=== PATIENT | male | born 1960 | race Caucasian/White ===

== ENCOUNTER → 2017-03-21 | Outpatient (CLI) | payer OTHER ==
[~2017-03-21] MED LIST: ATOR10TA82 PO; TESTOSTERONE IM
[2017-03-21 10:47] LABS: BASO % 0.3 %; BASO ABS # 0.02 K/uL (0-0.2); COMPLETE YES; EOS % 2.3 %; HEMATOCRIT 46.8 % (42-52); IG% 0.1 %; LYMPH % 35.3 %; LYMPH ABS # 2.57 K/uL (1.2-3.4); MEAN CELL VOLUME 91.2 fL (80-100); MEAN PLATELET VOLUME 9.7 fL (7.4-10.4); MONO % 8.8 %; NEUT % 53.2 %; PLATELET COUNT 247 K/uL (130-400); RED BLOOD COUNT 5.13 M/uL (4.7-6.1); WHITE BLOOD COUNT 7.29 K/uL (4.8-10.8)
[2017-03-21 11:16] LABS: ALT/SGPT 59 U/L (12-78); AST/SGOT 28 U/L (15-37); BLOOD UREA NITROGEN 10 mg/dl (7-18); BUN/CREATININE RATIO 10.6 (10-20); CALCIUM 8.7 mg/dl (8.5-10.1); CARBON DIOXIDE 27 mmol/L (21-32); CHLORIDE 106 mmol/L (98-107); CREATININE 0.98 mg/dl (0.60-1.40); GLUCOSE 88 mg/dl (70-99); POTASSIUM 4.2 mmol/L (3.5-5.1); SODIUM 140 mmol/L (136-145)
[2017-03-21 11:28] LABS: ALB/GLOB RATIO 1.2 (0.9-2); ALKALINE PHOSPHATASE 54 U/L (45-117); CHOLESTEROL 151 mg/dl (0-200); CHOLESTEROL/HDL RATIO 3.5; HDL CHOLESTEROL 43 mg/dl; LDL CHOLESTEROL CALCULATED 82 mg/dl; PROSTATE SPECIFIC ANTIGEN 0.823 ng/ml (0.000-4.000); THYROID STIMULATING HORMONE 0.909 uIu/ml (0.300-4.500); TRIGLYCERIDES 129 mg/dl (0-150); URIC ACID 6.6 mg/dl (2.6-7.2); VERY LOW DENSITY LIPOPROT CALC 26 mg/dl
[2017-03-21 11:32] LABS: ESTIMATED AVERAGE GLUCOSE 114 mg/dl; HA1C FLAG Normal (Normal)
[2017-03-21 12:26] LABS: PROLACTIN 5.59 ng/mL; TESTOSTERONE,TOTAL 1057.9 ng/dl
[2017-03-24 10:01] LABS: C-REACTIVE PROT HIGHSEN 2.6 MG/L
== END | disposition home or self-care (01) ==
LOC: C.LAB 09:28
PROVIDERS: ATTEND Family Medicine
DX: R73.09 Other abnormal glucose (principal); E29.1 Testicular hypofunction

== ENCOUNTER → 2017-10-02 | Outpatient (CLI) | payer OTHER ==
[2017-10-02 12:10] LABS: BASO % 0.4 %; BASO ABS # 0.03 K/uL (0-0.2); COMPLETE YES; EOS % 2.9 %; HEMATOCRIT 49.1 % (42-52); IG% 0.1 %; LYMPH % 33.7 %; LYMPH ABS # 2.58 K/uL (1.2-3.4); MEAN CELL VOLUME 91.8 fL (80-100); MEAN CORPUSCULAR HEMOGLOBIN 32.1 pg (25-34); MEAN PLATELET VOLUME 10.1 fL (7.4-10.4); MONO % 8.9 %; PLATELET COUNT 247 K/uL (130-400); RED BLOOD COUNT 5.35 M/uL (4.7-6.1); WHITE BLOOD COUNT 7.65 K/uL (4.8-10.8)
[2017-10-02 12:21] LABS: ALT/SGPT 67 U/L (12-78); AST/SGOT 37 U/L (15-37); BLOOD UREA NITROGEN 15 mg/dl (7-18); BUN/CREATININE RATIO 14.4 (10-20); CALCIUM 9.5 mg/dl (8.5-10.1); CARBON DIOXIDE 26 mmol/L (21-32); CHLORIDE 103 mmol/L (98-107); CHOLESTEROL 213 mg/dl (0-200); CREATININE 1.07 mg/dl (0.60-1.40); ESTIMATED AVERAGE GLUCOSE 111 mg/dl; GLUCOSE 99 mg/dl (70-99); HA1C FLAG Normal (Normal); POTASSIUM 4.2 mmol/L (3.5-5.1); SODIUM 137 mmol/L (136-145); TRIGLYCERIDES 221 mg/dl (0-150); URIC ACID 7.1 mg/dl (2.6-7.2); VERY LOW DENSITY LIPOPROT CALC 44 mg/dl
[2017-10-02 12:30] LABS: ALB/GLOB RATIO 1.3 (0.9-2); ALKALINE PHOSPHATASE 55 U/L (45-117); CHOLESTEROL/HDL RATIO 4.4; HDL CHOLESTEROL 48 mg/dl; LDL CHOLESTEROL CALCULATED 121 mg/dl; TOTAL IRON BINDING CAPACITY 340 mcg/dl (250-450)
[2017-10-02 13:12] LABS: TESTOSTERONE,TOTAL 860.8 ng/dl
== END | disposition home or self-care (01) ==
LOC: C.LAB 09:43
PROVIDERS: ATTEND Family Medicine
DX: R73.09 Other abnormal glucose (principal); E55.9 Vitamin D deficiency, unspecified; D51.9 Vitamin B12 deficiency anemia, unspecified; E78.9 Disorder of lipoprotein metabolism, unspecified; R53.83 Other fatigue

== ENCOUNTER → 2018-06-29 | Outpatient (CLI) | payer OTHER | END | disposition home or self-care (01) | LOC: C.LABSPEC 09:34 | PROVIDERS: ATTEND Family Medicine | DX: R19.7 Diarrhea, unspecified (principal) ==